=== PATIENT | female | born 1995 | race African-American/Black ===

== ENCOUNTER 2017-05-19 08:19 | Emergency (ER) | payer OTHER ==
[~2017-05-19] VITALS: Ht 160 cm; Wt 117.9 kg
[~2017-05-19 08:19] MED LIST: TIZANIDINE HCL4 MG PO
[2017-05-19 08:21] VITALS: BP 151/83
[2017-05-19] MEDS ORDERED: ACCUNEB SO1.25 MG/1 INH (08:22)
[2017-05-19 08:38] LABS: URINE BILIRUBIN 1+ (Negative); URINE BLOOD 3+ (Negative); URINE GLUCOSE-RANDOM* NEGATIVE (Negative); URINE KETONES NEGATIVE (Negative); URINE NITRITE NEGATIVE (Negative); URINE PROTEIN (DIPSTICK) 1+ (Negative); URINE SPECIFIC GRAVITY >= 1.030 (1.003-1.035)
[2017-05-19 08:41] LABS: ICTOTEST (BILI CONFIRMATORY) Negative (Negative); URINE COLOR DARK YELLOW
[2017-05-19] MEDS ORDERED: MACROBID 100 M100 M1 PO (08:59)
[2017-05-19 09:04] LABS: CASTS None Seen /LPF (None Seen); SQUAMOUS 0-3 Few /LPF (0-3)
[2017-05-19 09:05] LABS: BACTERIA 1-9 Few /HPF (None Seen); CRYSTALS None Seen /LPF (None Seen); URINE RBC >20 Many /HPF (0-2); URINE WBC 6-15 Few /HPF (0-5)
== END 2017-05-19 09:09 | disposition home or self-care (01) ==
LOC: ER 08:19
PROVIDERS: Emergency Medicine
DX: N39.0 Urinary tract infection, site not specified (principal); J45.909 Unspecified asthma, uncomplicated

== ENCOUNTER 2017-06-16 11:20 | Emergency (ER) | payer OTHER ==
[~2017-06-16] VITALS: Ht 162.6 cm; Wt 117.9 kg
[~2017-06-16 11:20] MED LIST changes: +ACCUNEB SO1.25 MG/1 INH; +MACROBID 100 M100 M1 PO
[2017-06-16 11:49] LABS: URINE BILIRUBIN NEGATIVE (Negative); URINE BLOOD TRACE (Negative); URINE COLOR YELLOW; URINE GLUCOSE-RANDOM* NEGATIVE (Negative); URINE KETONES NEGATIVE (Negative); URINE PROTEIN (DIPSTICK) TRACE (Negative)
[2017-06-16 11:50] LABS: URINE LEUKOCYTES-REFLEX TRACE (Negative)
[2017-06-16 11:54] LABS: ABSOLUTE NEUTROPHILS 3.4 thou/uL (1.4-8.2); BASOPHILS 0.8 % (0.0-2.0); EOSINOPHILS 1.6 % (0.0-3.0); HEMATOCRIT 37.6 % (37.0-47.0); HEMOGLOBIN 12.6 gm/dL (12.0-15.0); LYMPHOCYTES 43.8 % (24.0-44.0); MANUAL DIFF NO; MCH 30.2 pg (26.0-34.0); MCHC 33.5 g/dL (28.0-37.0); MCV 89.9 fL (80.0-100.0); PLATELET COUNT 264 thou/uL (150-400); POLYS 46.8 % (36.0-66.0); RBC 4.18 mil/uL (4.20-5.00); RDW 13.4 % (10.5-14.5); WBC 7.3 thou/uL (4.0-11.0)
[2017-06-16 11:58] LABS: CALCIUM 9.1 mg/dL (8.5-10.1); CREATININE 0.8 mg/dL (0.6-1.0); POTASSIUM 3.9 mmol/L (3.5-5.1)
[2017-06-16 12:03] LABS: ALBUMIN 3.6 g/dL (3.4-5.0); TOTAL BILIRUBIN 0.5 mg/dL (<0.1-1.0); TOTAL PROTEIN 7.6 g/dL (6.4-8.2)
[2017-06-16] MEDS ORDERED: CLEOCIN HCL150 MG PO (12:24)
[2017-06-16] MEDS ORDERED: ZOFRAN ODT4 M1 PO (12:24)
[2017-06-16 12:36] VITALS: BP 128/77
== END 2017-06-16 12:36 | disposition home or self-care (01) ==
LOC: ER 11:20
PROVIDERS: Physician Assistant
DX: R11.2 Nausea with vomiting, unspecified (principal); R10.13 Epigastric pain; T36.0X5A Adverse effect of penicillins, initial encounter; J45.909 Unspecified asthma, uncomplicated; F10.99 Alcohol use, unspecified with unspecified alcohol-induced disorder; Y92.89 Other specified places as the place of occurrence of the external cause

== ENCOUNTER 2018-06-21 20:28 | Emergency (ER) | payer OTHER ==
[~2018-06-21] VITALS: Ht 160 cm; Wt 115.7 kg
[~2018-06-21 20:28] MED LIST changes: +CLEOCIN HCL150 MG PO; +ZOFRAN ODT4 M1 PO
[2018-06-21 21:03] LABS: HEMATOCRIT 36.7 % (37.0-47.0); HEMOGLOBIN 12.4 gm/dL (12.0-15.0); MCH 30.5 pg (26.0-34.0); MCHC 33.9 g/dL (28.0-37.0); MCV 89.9 fL (80.0-100.0); RBC 4.08 mil/uL (4.20-5.00); RDW 14.1 % (10.5-14.5); WBC 10.1 thou/uL (4.0-11.0)
[2018-06-21 21:17] LABS: CALCIUM 9.5 mg/dL (8.5-10.1); CREATININE 0.8 mg/dL (0.6-1.0); POTASSIUM 3.6 mmol/L (3.5-5.1)
[2018-06-21] MEDS ORDERED: FLAGYL500 MG PO (22:16)
[2018-06-21] MEDS ORDERED: SENNA-DOCUSATE1 EACH PO (22:18)
[2018-06-21] MEDS ORDERED: NORCO 5-325 TA1 EACH PO (22:18)
[2018-06-21 22:46] VITALS: BP 109/63
== END 2018-06-21 22:48 | disposition home or self-care (01) ==
LOC: ER 20:28
PROVIDERS: Emergency Medicine
DX: O36.4XX1 Maternal care for intrauterine death, fetus 1 (principal); O23.591 Infection of other part of genital tract in pregnancy, first trimester; A59.9 Trichomoniasis, unspecified; J45.909 Unspecified asthma, uncomplicated; Z3A.01 Less than 8 weeks gestation of pregnancy

== ENCOUNTER 2018-06-26 16:38 | Emergency (ER) | payer OTHER ==
[~2018-06-26] VITALS: Ht 160 cm; Wt 113.4 kg
[~2018-06-26 16:38] MED LIST changes: +FLAGYL500 MG PO; +NORCO 5-325 TA1 EACH PO; +SENNA-DOCUSATE1 EACH PO
[2018-06-26 17:24] LABS: URINE BILIRUBIN NEGATIVE (Negative); URINE BLOOD NEGATIVE (Negative); URINE CLARITY CLEAR; URINE COLOR YELLOW; URINE GLUCOSE-RANDOM* NEGATIVE (Negative); URINE KETONES NEGATIVE (Negative); URINE NITRITE-REFLEX NEGATIVE (Negative); URINE PROTEIN (DIPSTICK) NEGATIVE (Negative); URINE SPECIFIC GRAVITY 1.025 (1.005-1.035); URINE UROBILINOGEN 0.2 E.U./dl (0.2-1.0)
[2018-06-26 17:27] LABS: URINE LEUKOCYTES-REFLEX TRACE (Negative)
[2018-06-26 17:27] LABS: CALCIUM 9.5 mg/dL (8.5-10.1); CREATININE 0.8 mg/dL (0.6-1.0)
[2018-06-26 17:32] LABS: ALBUMIN 3.2 g/dL (3.4-5.0); TOTAL BILIRUBIN 0.3 mg/dL (<0.1-1.0); TOTAL PROTEIN 7.5 g/dL (6.4-8.2)
[2018-06-26 19:58] LABS: ABSOLUTE NEUTROPHILS 5.2 thou/uL (1.4-8.2); BASOPHILS 0.5 % (0.0-2.0); EOSINOPHILS 1.4 % (0.0-3.0); HEMATOCRIT 36.2 % (37.0-47.0); HEMOGLOBIN 12.4 gm/dL (12.0-15.0); LYMPHOCYTES 38.9 % (24.0-44.0); MCH 30.5 pg (26.0-34.0); MCHC 34.2 g/dL (28.0-37.0); MCV 89.3 fL (80.0-100.0); MONOCYTES 7.9 % (1.0-8.0); PLATELET COUNT 227 thou/uL (150-400); POLYS 51.3 % (36.0-66.0); RBC 4.05 mil/uL (4.20-5.00); RDW 14.2 % (10.5-14.5); WBC 10.2 thou/uL (4.0-11.0)
[2018-06-26] MEDS ORDERED: PHENERGAN 25 MG25 M1 PO (20:41)
[2018-06-26 21:37] VITALS: BP 124/80
== END 2018-06-26 21:37 | disposition home or self-care (01) ==
LOC: ER 16:38
PROVIDERS: Physician Assistant
DX: O21.8 Other vomiting complicating pregnancy (principal); O98.811 Other maternal infectious and parasitic diseases complicating pregnancy, first trimester; O23.591 Infection of other part of genital tract in pregnancy, first trimester; J45.909 Unspecified asthma, uncomplicated; Z3A.00 Weeks of gestation of pregnancy not specified

== ENCOUNTER 2018-09-16 20:56 | Emergency (ER) | payer OTHER ==
[~2018-09-16] VITALS: Ht 160 cm; Wt 113.4 kg
[~2018-09-16 20:56] MED LIST changes: +PHENERGAN 25 MG25 M1 PO
[2018-09-16 21:07] VITALS: BP 153/88
[2018-09-16] MEDS ORDERED: NAPROSYN500 MG PO (21:59)
== END 2018-09-16 22:09 | disposition home or self-care (01) ==
LOC: ER 20:56
DX: J02.0 Streptococcal pharyngitis (principal); J45.909 Unspecified asthma, uncomplicated

== ENCOUNTER 2018-12-13 23:39 | Emergency (ER) | payer OTHER ==
[~2018-12-13] VITALS: Ht 160 cm; Wt 108.9 kg
[~2018-12-13 23:39] MED LIST changes: +NAPROSYN500 MG PO
[2018-12-14 01:20] VITALS: BP 125/76
== END 2018-12-14 01:30 | disposition home or self-care (01) ==
LOC: ER 23:39
DX: H72.91 Unspecified perforation of tympanic membrane, right ear (principal)

== ENCOUNTER 2019-07-25 23:48 | Emergency (ER) | payer OTHER ==
[~2019-07-25] VITALS: Ht 160 cm; Wt 117.9 kg
[2019-07-26] MEDS ORDERED: ZPAK PO (01:00)
[2019-07-26 01:16] VITALS: BP 147/81
== END 2019-07-26 01:17 | disposition home or self-care (01) ==
LOC: ER 23:48
DX: J09.X2 Influenza due to identified novel influenza A virus with other respiratory manifestations (principal); J45.909 Unspecified asthma, uncomplicated

== ENCOUNTER 2020-09-14 17:14 | Emergency (ER) | payer OTHER ==
[~2020-09-14] VITALS: Ht 160 cm; Wt 114.3 kg
[~2020-09-14 17:14] MED LIST changes: +ZPAK PO
[2020-09-14 17:28] LABS: URINE BILIRUBIN NEGATIVE (Negative); URINE BLOOD 3+ (Negative); URINE CLARITY SL CLOUDY; URINE COLOR YELLOW; URINE GLUCOSE-RANDOM* NEGATIVE (Negative); URINE KETONES NEGATIVE (Negative); URINE LEUKOCYTES-REFLEX 3+ (Negative); URINE NITRITE-REFLEX NEGATIVE (Negative); URINE PROTEIN (DIPSTICK) NEGATIVE (Negative); URINE SPECIFIC GRAVITY 1.015 (1.005-1.035); URINE UROBILINOGEN 0.2 E.U./dl (0.2-1.0)
[2020-09-14 17:51] LABS: SQUAMOUS >10 Many /LPF (0-3); URINE WBC-REFLEX 6-15 Few /HPF (0-5)
[2020-09-14 17:53] LABS: BACTERIA-REFLEX >30 Many /HPF (None Seen); CASTS None Seen /LPF (None Seen); CRYSTALS None Seen /LPF (None Seen)
[2020-09-14] MEDS ORDERED: FLAGYL500 M1 PO (18:33)
[2020-09-14 19:00] VITALS: BP 145/95
== END 2020-09-14 19:01 | disposition home or self-care (01) ==
LOC: ER 17:14
PROVIDERS: Physician Assistant
DX: A59.01 Trichomonal vulvovaginitis (principal); N89.8 Other specified noninflammatory disorders of vagina; Z79.899 Other long term (current) drug therapy

== ENCOUNTER 2020-10-30 10:12 | Emergency (ER) | payer OTHER ==
[~2020-10-30] VITALS: Ht 160 cm; Wt 115.2 kg
[~2020-10-30 10:12] MED LIST changes: +FLAGYL500 M1 PO
[2020-10-30 10:43] LABS: URINE BILIRUBIN NEGATIVE (Negative); URINE BLOOD NEGATIVE (Negative); URINE CLARITY CLEAR; URINE COLOR YELLOW; URINE GLUCOSE-RANDOM* NEGATIVE (Negative); URINE KETONES NEGATIVE (Negative); URINE NITRITE-REFLEX NEGATIVE (Negative); URINE PROTEIN (DIPSTICK) NEGATIVE (Negative); URINE SPECIFIC GRAVITY 1.025 (1.005-1.035)
[2020-10-30 10:44] LABS: URINE LEUKOCYTES-REFLEX 2+ (Negative)
[2020-10-30 11:03] LABS: CASTS None Seen /LPF (None Seen); MUCUS 4-6 Moderate strn/LPF (None Seen); SQUAMOUS >10 Many /LPF (0-3)
[2020-10-30 11:04] LABS: BACTERIA-REFLEX 1-9 Few /HPF (None Seen); CRYSTALS None Seen /LPF (None Seen); URINE RBC 0-2 Rare /HPF (0-2); URINE WBC-REFLEX 0-5 Rare /HPF (0-5)
[2020-10-30 12:20] VITALS: BP 144/81
== END 2020-10-30 12:47 | disposition home or self-care (01) ==
LOC: ER 10:12
PROVIDERS: Emergency Medicine
DX: R10.2 Pelvic and perineal pain (principal); J45.909 Unspecified asthma, uncomplicated; Z79.899 Other long term (current) drug therapy

== ENCOUNTER 2020-11-14 16:28 | Emergency (ER) | payer OTHER ==
[~2020-11-14] VITALS: Ht 157.5 cm; Wt 117.9 kg
[2020-11-14 19:19] VITALS: BP 152/95
== END 2020-11-14 19:19 | disposition home or self-care (01) ==
LOC: ER 16:28
DX: O26.891 Other specified pregnancy related conditions, first trimester (principal); S00.83XA Contusion of other part of head, initial encounter; O20.0 Threatened abortion; O99.511 Diseases of the respiratory system complicating pregnancy, first trimester; J45.909 Unspecified asthma, uncomplicated; Z79.899 Other long term (current) drug therapy; Z3A.01 Less than 8 weeks gestation of pregnancy

== ENCOUNTER 2020-11-17 13:07 | Emergency (ER) | payer OTHER ==
[~2020-11-17] VITALS: Ht 160 cm; Wt 117.9 kg
[2020-11-17 13:21] VITALS: BP 136/77
== END 2020-11-17 14:01 | disposition home or self-care (01) ==
LOC: ER 13:07
DX: S01.01XD Laceration without foreign body of scalp, subsequent encounter (principal); J45.909 Unspecified asthma, uncomplicated; Z79.899 Other long term (current) drug therapy; X58.XXXD Exposure to other specified factors, subsequent encounter

== ENCOUNTER 2020-12-01 08:51 | Emergency (ER) | payer OTHER ==
[~2020-12-01] VITALS: Ht 160 cm; Wt 117.9 kg
[2020-12-01 08:54] VITALS: BP 120/59
[2020-12-01] MEDS ORDERED: ENBRACE HR SOF1 EACH PO (08:57)
== END 2020-12-01 10:01 | disposition left against medical advice (07) ==
LOC: ER 08:51
DX: Z48.01 Encounter for change or removal of surgical wound dressing (principal); Z53.21 Procedure and treatment not carried out due to patient leaving prior to being seen by health care provider

== ENCOUNTER 2021-08-28 16:15 | Emergency (ER) | payer OTHER ==
[~2021-08-28] VITALS: Ht 160 cm; Wt 122.5 kg
[~2021-08-28 16:15] MED LIST changes: +ENBRACE HR SOF1 EACH PO
[2021-08-28 16:19] VITALS: BP 169/96
[2021-08-28] MEDS ORDERED: TESSALON PERLE100 MG PO (17:33)
[2021-08-28] MEDS ORDERED: ZPAK PO (17:33)
== END 2021-08-28 17:44 | disposition home or self-care (01) ==
LOC: ER 16:15
PROVIDERS: Nurse Practitioner
DX: J45.909 Unspecified asthma, uncomplicated (principal); Z20.822 Contact with and (suspected) exposure to COVID-19; Z79.899 Other long term (current) drug therapy